=== PATIENT | female | born 1995 | race Caucasian/White ===

== ENCOUNTER 2018-05-13 10:59 | Emergency (ER) | payer OTHER ==
[~2018-05-13] VITALS: Ht 154.9 cm; Wt 70.3 kg
[2018-05-13 11:19] LABS: Source, Urine Clean Catch
[2018-05-13] MEDS ORDERED: Zofran Odt8 MG SL (11:20)
[2018-05-13] MEDS ORDERED: Keflex500 MG PO (11:20)
[2018-05-13] MEDS ORDERED: Pyridium200 MG PO (11:20)
[2018-05-13 11:29] LABS: Bilirubin, Urine Neg (Neg); Blood, Urine 1+ (Neg); Glucose Qualitative, Urine Neg (Neg); Ketones, Urine 2+ (Neg); Leukocyte Esterase, Urine Neg (Neg); Nitrite, Urine Neg (Neg); Protein, Urine 2+ (Neg); Urobilinogen, Urine NORM (Normal)
[2018-05-13 11:56] LABS: Appearance, Urine Hazy (Clear); Color, Urine Yellow (P-Yellow)
[2018-05-13 11:57] LABS: Bacteria Mod /hpf; Red Blood Cells, Urine 0-2 /hpf (0-2); Squamous Epithelial Cells Rare /hpf (Few); White Blood Cells, Urine 0-2 /hpf (0-5)
[2018-05-13 11:58] LABS: Amorphous Light (0-Heavy); Calcium Oxalate Crystals Rare /hpf
== END 2018-05-13 11:25 | disposition home or self-care (01) ==
LOC: ER 10:59
PROVIDERS: Physician Assistant
DX: R30.0 Dysuria (principal); Z88.5 Allergy status to narcotic agent
CPT/HCPCS: 81001; 81025; 87086; 99283